=== PATIENT | female | born 1990 | race Caucasian/White ===

== ENCOUNTER → 2021-08-25 | Day surgery (SDC) | payer OTHER ==
[~2021-08-25] VITALS: Ht 152.4 cm; Wt 46.8 kg
[~2021-08-25] MED LIST: ABILIFY10 MG PO; BACLOFEN 10MG T10 MG PO; CYMBALTA20 MG PO; KLONOPIN1 MG PO; LYRICA150 MG PO; PERCOCET 5-3251 EACH PO
[2021-08-25 08:06] LABS: HCG (URINE) SCREEN NEGATIVE (NEGATIVE)
[2021-08-25 08:33] LABS: HCT 38.8 % (37.0-47.0); HGB 12.9 g/dl (12.5-16.0); MCH 29.8 pg (25.0-31.0); MCHC 33.2 g/dL (32.0-36.0); MCV 89.6 fL (78.0-100.0); MPV 10.5 fL (6.0-9.5); RBC 4.33 M/uL (4.20-5.40); RDW 12.7 % (11.5-14.0)
== END | disposition home or self-care (01) ==
LOC: FAS 07:47
PROVIDERS: Obstetrics & Gynecology
DX: N92.0 Excessive and frequent menstruation with regular cycle (principal); F31.9 Bipolar disorder, unspecified; F17.210 Nicotine dependence, cigarettes, uncomplicated; Z88.1 Allergy status to other antibiotic agents
CPT/HCPCS: 36415; 84703; 86850; 86900; 86901; J1100; J1885; J2250; J2270; J2405; J2704; J3010; J7120

== ENCOUNTER 2021-09-09 13:30 | Emergency (ER) | payer OTHER ==
[2021-09-09 14:07] LABS: BASOPHIL 0.2 % (0-2); EOSINOPHIL 0.4 % (0-5); HCT 42.7 % (37.0-47.0); MCH 29.5 pg (25.0-31.0); MCHC 32.8 g/dL (32.0-36.0); MCV 90.1 fL (78.0-100.0); MONOCYTE 4.8 % (0-12); MPV 10.6 fL (6.0-9.5); NEUTROPHIL 74.2 % (41-80); NRBC 0; PLT 212 K/uL (150-400); RBC 4.74 M/uL (4.20-5.40); RDW 12.5 % (11.5-14.0); WBC 14.5 K/uL (4.0-10.5)
[2021-09-09 14:08] LABS: BILIRUBIN NEGATIVE (NEGATIVE); BLOOD NEGATIVE Ery/uL (NEGATIVE); CLARITY CLEAR (CLEAR); COLOR YELLOW (YELLOW); GLUCOSE (U) NORMAL (NORMAL); LEUKOCYTES NEGATIVE Leu/uL (NEGATIVE); NITRITE NEGATIVE (NEGATIVE); PROTEIN NEGATIVE (NEGATIVE); UROBILINOGEN 0.2 mg/dL (0.2-1.0); pH 6.5 (5.0-9.0)
[2021-09-09 14:35] LABS: ALBUMIN 3.7 g/dL (3.4-5.0); BILIRUBIN - TOTAL 0.2 mg/dL (0.2-1.0); BUN/CREAT RATIO (CALC) 15.2 RATIO; CREATININE 0.99 mg/dL (0.51-0.95); GLOBULIN (CALCULATION) 3.8 g/dL; TOTAL PROTEIN 7.5 g/dL (6.4-8.2)
[2021-09-09] MEDS ORDERED: ONDANSETRON ODT4 MG PO (15:54)
[2021-09-09] MEDS ORDERED: PEPCID AC20 MG PO (15:54)
== END 2021-09-09 16:12 | disposition home or self-care (01) ==
LOC: FER 13:30
PROVIDERS: Physician Assistant
DX: R10.13 Epigastric pain (principal); F17.210 Nicotine dependence, cigarettes, uncomplicated
CPT/HCPCS: 36415; 80053; 81001; 83690; 85025; J2405; J7030; Q9967

== ENCOUNTER 2021-11-18 10:15 | Emergency (ER) | payer OTHER ==
[~2021-11-18 10:15] MED LIST changes: +ONDANSETRON ODT4 MG PO; +PEPCID AC20 MG PO
[2021-11-18] MEDS ORDERED: MEDROL 4MG DOSEP4 MG PO (11:23)
[2021-11-18] MEDS ORDERED: NORCO 5-325 TA1 EACH PO (11:23)
== END 2021-11-18 11:42 | disposition home or self-care (01) ==
LOC: FER 10:15
DX: M54.41 Lumbago with sciatica, right side (principal); Z28.310 Unvaccinated for COVID-19
CPT/HCPCS: 99283